=== PATIENT | female | born 1930 | race African-American/Black ===

== ENCOUNTER 2017-05-21 10:00 | Inpatient (IN) | payer MEDICARE ==
[~2017-05-21] VITALS: Ht 165.1 cm; Wt 58.1 kg
[~2017-05-21 10:00] MED LIST: ATEN100T PO; ESOM40CA PO; HYDR25TA PO; LISI-604 PO
[2017-05-21 11:43] LABS: BASOPHILS % 0.5 % (0.0-2.0); EOSINOPHILS % 1.2 % (0.0-5.0); HEMATOCRIT. 35.5 % (36.0-48.0); HEMOGLOBIN. 12.1 g/dL (12.0-16.0); LYMPHOCYTES % 21.9 % (20.0-50.0); MEAN CORPUSCULAR HEMOGLOBIN 30.4 pg (28.0-32.0); MEAN CORPUSCULAR VOLUME 89.4 fL (81.0-99.0); MEAN PLATELET VOLUME 8.3 fl (7.4-10.4); MONOCYTES % 6.6 % (2.0-8.0); NEUTROPHILS % 69.8 % (40.0-76.0); PLATELET 196 x1000/uL (130-400); RED BLOOD CELL COUNT 3.98 mill/uL (4.2-5.4); RED CELL DISTRIBUTION WIDTH 13.8 % (11.6-14.6)
[2017-05-21 12:04] LABS: CARBON DIOXIDE 28 mEq/L (21-32); CHLORIDE 107 mEq/L (98-107); ETHANOL BLOOD < 10 mg/dL; TROPONIN I < 0.02 ng/mL (0.00-0.04)
[2017-05-21 12:28] LABS: CLARITY URINE CLOUDY (CLEAR); COLOR URINE YELLOW (YELLOW); GLUCOSE URINE NEGATIVE (NEGATIVE); KETONES URINE NEGATIVE (NEGATIVE); LEUKOCYTE ESTERASE URINE 3+ (NEGATIVE); NITRITE URINE NEGATIVE (NEGATIVE); OCCULT BLOOD URINE TRACE (NEGATIVE); PROTEIN URINE NEGATIVE (NEGATIVE); SPECIFIC GRAVITY URINE 1.019 (1.005-1.030)
[2017-05-21] MEDS ORDERED: CEFTRIAXONE SODIUM 1 G/VIAL IM ONE (12:45)
[2017-05-21] MEDS ORDERED: LIDOCAINE HCL 1% 20ML VIAL (Pyxis) INJ INFIL ONE (12:45)
[2017-05-21 12:56] LABS: *AMPHETAMINES SCREEN URINE NEGATIVE (NEGATIVE); *BARBITURATES SCREEN URINE NEGATIVE (NEGATIVE); *BENZODIAZEPINES SCREEN URINE NEGATIVE (NEGATIVE); *COCAINE SCREEN URINE NEGATIVE (NEGATIVE); CANNABINOID URINE SCREEN NEGATIVE (NEGATIVE); METHADONE URINE SCREEN NEGATIVE (NEGATIVE); OPIATES URINE SCREEN NEGATIVE (NEGATIVE); PHENCYCLIDINE URINE SCREEN NEGATIVE (NEGATIVE)
[2017-05-21] MEDS ORDERED: GUAIFENESIN 200MG/10ML SUGAR FREE UDC PO PRN (19:00)
[2017-05-21] MEDS ORDERED: LORAZEPAM 0.5MG TABLET PO PRN (19:00)
[2017-05-21] MEDS ORDERED: IPRATROPIUM/ALBUTEROL 0.5-3(2.5)MG/3ML NEB INH PRN (19:00)
[2017-05-21] MEDS ORDERED: DIPHENHYDRAMINE 25MG CAPSULE PO ONE (21:30)
[2017-05-21] MEDS: LISINOPRIL 20MG TABLET PO SCH (22:21)
[2017-05-21 23:48] VITALS: BP 190/73
[2017-05-22] VITALS: BP 190/73
[2017-05-22] MEDS: CLONIDINE 0.1MG TABLET PO PRN (00:26)
[2017-05-22] MEDS: DOCUSATE SODIUM 100MG CAPSULE PO PRN (00:26)
[2017-05-22] MEDS ORDERED: DEXTROSE 50% WATER 50ML SYRINGE IV PRN (01:15)
[2017-05-22 04:00] VITALS: BP 112/36
[2017-05-22] MEDS: BLOOD SUGAR DIAGNOSTIC STRIP TEST SCH ×4 (06:40→21:00)
[2017-05-22] MEDS: INSULIN LISPRO 100 UNITS/ML SUBCUT SCH ×4 (06:40→21:00)
[2017-05-22] MEDS: PANTOPRAZOLE 40MG DR TABLET PO SCH (06:41)
[2017-05-22 08:00] VITALS: BP 136/53
[2017-05-22] MEDS: ATENOLOL 100 MG TABLET PO SCH ×2 (08:56→22:24)
[2017-05-22] MEDS: HYDROCHLOROTHIAZIDE 25MG TABLET PO SCH (08:57)
[2017-05-22] MEDS: LISINOPRIL 20MG TABLET PO SCH ×2 (08:57→22:25)
[2017-05-22 12:04] VITALS: BP 135/61
[2017-05-22] MEDS: CEFTRIAXONE 1 G PREMIX 50 ML IV SCH (13:31)
[2017-05-22 16:00] VITALS: BP 135/60
[2017-05-22 21:10] LABS: AMMONIA 32 uMol/L (<32)
[2017-05-22 21:20] LABS: T4 FREE 1.03 ng/dL (0.76-1.46)
[2017-05-22 21:37] LABS: FOLIC ACID (FOLATE) SERUM 6.9 ng/mL (>5.38)
[2017-05-22] MEDS: QUETIAPINE FUMARATE 25MG TABLET PO SCH (22:24)
[2017-05-23] VITALS: BP 140/47
[2017-05-23 04:00] VITALS: BP 132/55
[2017-05-23] MEDS: INSULIN LISPRO 100 UNITS/ML SUBCUT SCH ×4 (06:44→21:00)
[2017-05-23] MEDS: PANTOPRAZOLE 40MG DR TABLET PO SCH (06:44)
[2017-05-23] MEDS: BLOOD SUGAR DIAGNOSTIC STRIP TEST SCH ×4 (06:44→21:40)
[2017-05-23 08:00] VITALS: BP 152/54
[2017-05-23] MEDS: QUETIAPINE FUMARATE 25MG TABLET PO SCH ×2 (08:34→21:37)
[2017-05-23] MEDS: HYDROCHLOROTHIAZIDE 25MG TABLET PO SCH (08:34)
[2017-05-23] MEDS: ATENOLOL 100 MG TABLET PO SCH ×2 (08:34→21:40)
[2017-05-23] MEDS: LISINOPRIL 20MG TABLET PO SCH ×2 (08:35→21:40)
[2017-05-23 10:16] LABS: BASOPHILS % 0.4 % (0.0-2.0); EOSINOPHILS % 2.6 % (0.0-5.0); HEMATOCRIT. 34.2 % (36.0-48.0); HEMOGLOBIN. 11.5 g/dL (12.0-16.0); LYMPHOCYTES % 27.2 % (20.0-50.0); MEAN CORPUSCULAR VOLUME 88.8 fL (81.0-99.0); MEAN PLATELET VOLUME 8.4 fl (7.4-10.4); MONOCYTES % 7.4 % (2.0-8.0); NEUTROPHILS % 62.4 % (40.0-76.0); PLATELET 177 x1000/uL (130-400); RED BLOOD CELL COUNT 3.85 mill/uL (4.2-5.4); RED CELL DISTRIBUTION WIDTH 13.5 % (11.6-14.6)
[2017-05-23] MEDS: ENOXAPARIN 30MG/0.3ML SYR SUBCUT SCH (10:25)
[2017-05-23 10:41] LABS: CARBON DIOXIDE 29 mEq/L (21-32); CHLORIDE 108 mEq/L (98-107)
[2017-05-23 12:18] VITALS: BP 144/57
[2017-05-23] MEDS: CEFTRIAXONE 1 G PREMIX 50 ML IV SCH (15:28)
[2017-05-23 16:22] VITALS: BP 151/47
[2017-05-23] MEDS ORDERED: POTASSIUM CHLORIDE 20MEQ TABLET SR PO NR (18:00)
[2017-05-23 20:00] VITALS: BP 144/45
[2017-05-24] VITALS: BP 157/58
[2017-05-24 04:00] VITALS: BP 156/62
[2017-05-24] MEDS: INSULIN LISPRO 100 UNITS/ML SUBCUT SCH ×4 (07:15→21:00)
[2017-05-24 07:55] LABS: CARBON DIOXIDE 30 mEq/L (21-32); CHLORIDE 106 mEq/L (98-107)
[2017-05-24 08:00] VITALS: BP 174/72
[2017-05-24] MEDS: BLOOD SUGAR DIAGNOSTIC STRIP TEST SCH ×4 (08:15→21:00)
[2017-05-24] MEDS: CYANOCOBALAMIN 1000MCG TABLET PO SCH (08:16)
[2017-05-24] MEDS: HYDROCHLOROTHIAZIDE 25MG TABLET PO SCH (08:16)
[2017-05-24] MEDS: LISINOPRIL 20MG TABLET PO SCH ×2 (08:17→21:00)
[2017-05-24] MEDS: ATENOLOL 100 MG TABLET PO SCH ×2 (08:17→21:00)
[2017-05-24] MEDS: FAMOTIDINE 20MG TABLET PO SCH ×2 (08:17→21:00)
[2017-05-24] MEDS: ENOXAPARIN 30MG/0.3ML SYR SUBCUT SCH (08:22)
[2017-05-24] MEDS: QUETIAPINE FUMARATE 25MG TABLET PO SCH ×2 (08:38→21:00)
[2017-05-24] MEDS: CEFTRIAXONE 1 G PREMIX 50 ML IV SCH (10:43)
[2017-05-24] MEDS ORDERED: POTASSIUM CHLORIDE 20MEQ TABLET SR PO SCH (11:15)
[2017-05-24 12:00] VITALS: BP 112/43
[2017-05-24 16:00] VITALS: BP 145/59
[2017-05-24] MEDS: LORAZEPAM 2MG/ML CPJ IV PRN (21:30)
[2017-05-25] VITALS (8 sets, daily range): BP systolic 95–194; BP diastolic 35–83
[2017-05-25] MEDS: CLONIDINE 0.1MG TABLET PO PRN (00:33)
[2017-05-25] MEDS: INSULIN LISPRO 100 UNITS/ML SUBCUT SCH ×4 (06:27→21:00)
[2017-05-25] MEDS: BLOOD SUGAR DIAGNOSTIC STRIP TEST SCH ×4 (06:27→21:41)
[2017-05-25] MEDS: CYANOCOBALAMIN 1000MCG TABLET PO SCH (06:31)
[2017-05-25] MEDS: DOCUSATE SODIUM 100MG CAPSULE PO PRN (10:07)
[2017-05-25] MEDS: ATENOLOL 100 MG TABLET PO SCH ×2 (10:07→21:00)
[2017-05-25] MEDS: FAMOTIDINE 20MG TABLET PO SCH ×2 (10:07→21:58)
[2017-05-25] MEDS: HYDROCHLOROTHIAZIDE 25MG TABLET PO SCH (10:07)
[2017-05-25] MEDS: QUETIAPINE FUMARATE 25MG TABLET PO SCH ×2 (10:08→21:59)
[2017-05-25] MEDS: LISINOPRIL 20MG TABLET PO SCH ×2 (10:08→21:00)
[2017-05-25] MEDS: ENOXAPARIN 30MG/0.3ML SYR SUBCUT SCH (10:12)
[2017-05-25] MEDS: CEFTRIAXONE 1 G PREMIX 50 ML IV SCH (10:14)
[2017-05-25] MEDS: MEMANTINE HCL 5MG TABLET PO SCH (16:31)
[2017-05-25] MEDS: LORAZEPAM 2MG/ML CPJ IV PRN (19:15)
[2017-05-26] VITALS: BP 117/72
[2017-05-26 04:00] VITALS: BP 98/54
[2017-05-26 05:37] LABS: BASOPHILS % 0.5 % (0.0-2.0); EOSINOPHILS % 2.8 % (0.0-5.0); HEMATOCRIT. 38.7 % (36.0-48.0); HEMOGLOBIN. 13.2 g/dL (12.0-16.0); MEAN CORPUSCULAR HEMOGLOBIN 30.2 pg (28.0-32.0); MEAN CORPUSCULAR VOLUME 88.5 fL (81.0-99.0); MEAN PLATELET VOLUME 8.9 fl (7.4-10.4); NEUTROPHILS % 55.7 % (40.0-76.0); PLATELET 178 x1000/uL (130-400); RED BLOOD CELL COUNT 4.37 mill/uL (4.2-5.4); RED CELL DISTRIBUTION WIDTH 13.7 % (11.6-14.6)
[2017-05-26] MEDS: BLOOD SUGAR DIAGNOSTIC STRIP TEST SCH ×4 (06:01→20:28)
[2017-05-26] MEDS: INSULIN LISPRO 100 UNITS/ML SUBCUT SCH ×4 (06:01→20:27)
[2017-05-26 06:54] LABS: CARBON DIOXIDE 29 mEq/L (21-32); CHLORIDE 105 mEq/L (98-107)
[2017-05-26 08:00] VITALS: BP 143/58
[2017-05-26] MEDS: ATENOLOL 100 MG TABLET PO SCH ×2 (09:01→20:21)
[2017-05-26] MEDS: MEMANTINE HCL 5MG TABLET PO SCH (09:01)
[2017-05-26] MEDS: FAMOTIDINE 20MG TABLET PO SCH (09:01)
[2017-05-26] MEDS: LISINOPRIL 20MG TABLET PO SCH ×2 (09:02→20:20)
[2017-05-26] MEDS: CEFTRIAXONE 1 G PREMIX 50 ML IV SCH (09:02)
[2017-05-26] MEDS: ENOXAPARIN 30MG/0.3ML SYR SUBCUT SCH (09:02)
[2017-05-26] MEDS: QUETIAPINE FUMARATE 25MG TABLET PO SCH ×2 (09:02→20:20)
[2017-05-26] MEDS: CYANOCOBALAMIN 1000MCG TABLET PO SCH (09:02)
[2017-05-26] MEDS: HYDROCHLOROTHIAZIDE 25MG TABLET PO SCH (09:02)
[2017-05-26 12:00] VITALS: BP 114/45
[2017-05-26] MEDS: POTASSIUM CHLORIDE 20MEQ TABLET SR PO SCH (15:30)
[2017-05-26 16:00] VITALS: BP 127/56
[2017-05-26] MEDS: LORAZEPAM 2MG/ML CPJ IV PRN (17:10)
[2017-05-26 20:00] VITALS: BP 116/74
[2017-05-27] VITALS: BP 138/53
[2017-05-27 04:15] VITALS: BP 170/59
[2017-05-27] MEDS: CLONIDINE 0.1MG TABLET PO PRN (04:34)
[2017-05-27] MEDS: DOCUSATE SODIUM 100MG CAPSULE PO PRN (05:50)
[2017-05-27] MEDS: INSULIN LISPRO 100 UNITS/ML SUBCUT SCH ×4 (05:54→21:00)
[2017-05-27] MEDS: BLOOD SUGAR DIAGNOSTIC STRIP TEST SCH ×4 (05:54→21:00)
[2017-05-27 08:00] VITALS: BP 134/87
[2017-05-27] MEDS: CYANOCOBALAMIN 1000MCG TABLET PO SCH (08:49)
[2017-05-27] MEDS: POTASSIUM CHLORIDE 20MEQ TABLET SR PO SCH (08:49)
[2017-05-27] MEDS: QUETIAPINE FUMARATE 25MG TABLET PO SCH ×2 (08:49→20:49)
[2017-05-27] MEDS: FAMOTIDINE 20MG TABLET PO SCH (08:49)
[2017-05-27] MEDS: MEMANTINE HCL 5MG TABLET PO SCH (08:49)
[2017-05-27] MEDS: LISINOPRIL 20MG TABLET PO SCH ×2 (08:49→20:49)
[2017-05-27] MEDS: ATENOLOL 100 MG TABLET PO SCH ×2 (08:50→20:49)
[2017-05-27] MEDS: HYDROCHLOROTHIAZIDE 25MG TABLET PO SCH (08:50)
[2017-05-27] MEDS: ENOXAPARIN 30MG/0.3ML SYR SUBCUT SCH (08:51)
[2017-05-27] MEDS: CEFTRIAXONE 1 G PREMIX 50 ML IV SCH (08:52)
[2017-05-27 10:07] LABS: 25-HYDROXY VITAMIN D3 19 ng/mL (.)
[2017-05-27 12:00] VITALS: BP 124/58
[2017-05-27 16:00] VITALS: BP 133/40
[2017-05-27 18:30] LABS: CARBON DIOXIDE 31 mEq/L (21-32); CHLORIDE 103 mEq/L (98-107)
[2017-05-27 18:44] LABS: AMMONIA 21 uMol/L (<32)
[2017-05-27 20:00] VITALS: BP 158/51
[2017-05-27] MEDS: LORAZEPAM 2MG/ML CPJ IV PRN (23:26)
[2017-05-28] VITALS (8 sets, daily range): BP systolic 113–170; BP diastolic 44–77
[2017-05-28] MEDS: DOCUSATE SODIUM 100MG CAPSULE PO PRN (05:53)
[2017-05-28] MEDS: INSULIN LISPRO 100 UNITS/ML SUBCUT SCH ×4 (06:01→20:41)
[2017-05-28] MEDS: BLOOD SUGAR DIAGNOSTIC STRIP TEST SCH ×4 (06:01→20:30)
[2017-05-28] MEDS: CEFTRIAXONE 1 G PREMIX 50 ML IV SCH (09:44)
[2017-05-28] MEDS: POTASSIUM CHLORIDE 20MEQ TABLET SR PO SCH (09:44)
[2017-05-28] MEDS: HYDROCHLOROTHIAZIDE 25MG TABLET PO SCH (09:44)
[2017-05-28] MEDS: QUETIAPINE FUMARATE 25MG TABLET PO SCH ×2 (09:45→20:40)
[2017-05-28] MEDS: ATENOLOL 100 MG TABLET PO SCH ×2 (09:45→20:40)
[2017-05-28] MEDS: MEMANTINE HCL 5MG TABLET PO SCH (09:45)
[2017-05-28] MEDS: CYANOCOBALAMIN 1000MCG TABLET PO SCH (09:45)
[2017-05-28] MEDS: FAMOTIDINE 20MG TABLET PO SCH (09:45)
[2017-05-28] MEDS: LISINOPRIL 20MG TABLET PO SCH ×2 (09:45→20:40)
[2017-05-28] MEDS: ENOXAPARIN 30MG/0.3ML SYR SUBCUT SCH (09:45)
[2017-05-28] MEDS ORDERED: MAGNESIUM HYDROXIDE 400MG/5ML 30ML UDC PO PRN (12:15)
[2017-05-28] MEDS: LORAZEPAM 2MG/ML CPJ IV PRN (22:57)
[2017-05-29] VITALS (7 sets, daily range): BP systolic 126–160; BP diastolic 53–95
[2017-05-29] MEDS: BLOOD SUGAR DIAGNOSTIC STRIP TEST SCH ×4 (05:45→21:00)
[2017-05-29] MEDS: INSULIN LISPRO 100 UNITS/ML SUBCUT SCH ×4 (06:00→21:00)
[2017-05-29] MEDS: LORAZEPAM 2MG/ML CPJ IV PRN ×2 (06:50→20:14)
[2017-05-29] MEDS: CYANOCOBALAMIN 1000MCG TABLET PO SCH ×2 (07:15→14:44)
[2017-05-29] MEDS: MEMANTINE HCL 5MG TABLET PO SCH ×2 (09:00→14:44)
[2017-05-29] MEDS: ENOXAPARIN 30MG/0.3ML SYR SUBCUT SCH (09:00)
[2017-05-29] MEDS: LISINOPRIL 20MG TABLET PO SCH ×2 (09:00→21:34)
[2017-05-29] MEDS: ATENOLOL 100 MG TABLET PO SCH ×2 (09:00→21:34)
[2017-05-29] MEDS: QUETIAPINE FUMARATE 25MG TABLET PO SCH ×2 (09:00→21:34)
[2017-05-29] MEDS: HYDROCHLOROTHIAZIDE 25MG TABLET PO SCH ×2 (09:00→14:44)
[2017-05-29] MEDS: FAMOTIDINE 20MG TABLET PO SCH ×2 (09:00→14:44)
[2017-05-29] MEDS: POTASSIUM CHLORIDE 20MEQ TABLET SR PO SCH (09:00)
[2017-05-29] MEDS: CEFTRIAXONE 1 G PREMIX 50 ML IV SCH (11:51)
[2017-05-29] MEDS: DIPHENHYDRAMINE 50MG/ML VIAL IM PRN (23:51)
[2017-05-29] MEDS: HALOPERIDOL LACTATE 5MG/ML VIAL IM PRN (23:52)
[2017-05-30] VITALS: BP 168/86
[2017-05-30] MEDS: BLOOD SUGAR DIAGNOSTIC STRIP TEST SCH ×4 (07:12→21:00)
[2017-05-30] MEDS: INSULIN LISPRO 100 UNITS/ML SUBCUT SCH ×4 (07:13→21:00)
[2017-05-30 07:29] LABS: BASOPHILS % 0.5 % (0.0-2.0); EOSINOPHILS % 2.8 % (0.0-5.0); HEMATOCRIT. 38.9 % (36.0-48.0); HEMOGLOBIN. 13.2 g/dL (12.0-16.0); LYMPHOCYTES % 35.7 % (20.0-50.0); MEAN CORPUSCULAR HEMOGLOBIN 30.6 pg (28.0-32.0); MEAN CORPUSCULAR VOLUME 89.9 fL (81.0-99.0); MEAN PLATELET VOLUME 8.8 fl (7.4-10.4); MONOCYTES % 12.8 % (2.0-8.0); NEUTROPHILS % 48.2 % (40.0-76.0); PLATELET 177 x1000/uL (130-400); RED BLOOD CELL COUNT 4.32 mill/uL (4.2-5.4); RED CELL DISTRIBUTION WIDTH 13.6 % (11.6-14.6)
[2017-05-30 07:33] LABS: CARBON DIOXIDE 30 mEq/L (21-32); CHLORIDE 104 mEq/L (98-107)
[2017-05-30 08:00] VITALS: BP 149/54
[2017-05-30] MEDS: FAMOTIDINE 20MG TABLET PO SCH (08:58)
[2017-05-30] MEDS: ATENOLOL 100 MG TABLET PO SCH ×2 (08:59→21:00)
[2017-05-30] MEDS: MEMANTINE HCL 5MG TABLET PO SCH (09:00)
[2017-05-30] MEDS: QUETIAPINE FUMARATE 25MG TABLET PO SCH ×3 (09:00→22:00)
[2017-05-30] MEDS: HYDROCHLOROTHIAZIDE 25MG TABLET PO SCH (09:00)
[2017-05-30] MEDS: ENOXAPARIN 30MG/0.3ML SYR SUBCUT SCH ×2 (09:00→09:09)
[2017-05-30] MEDS: CYANOCOBALAMIN 1000MCG TABLET PO SCH (09:00)
[2017-05-30] MEDS: LISINOPRIL 20MG TABLET PO SCH ×2 (09:00→21:00)
[2017-05-30] MEDS ORDERED: POTASSIUM CHLORIDE 20MEQ TABLET SR PO SCH (11:30)
[2017-05-30 12:00] VITALS: BP 118/44
[2017-05-30 16:00] VITALS: BP 125/54
[2017-05-30] MEDS: POTASSIUM CHLORIDE 20MEQ TABLET SR PO SCH (16:25)
[2017-05-30] MEDS: HALOPERIDOL LACTATE 5MG/ML VIAL IM PRN (18:29)
[2017-05-30 20:00] VITALS: BP 130/52
[2017-05-31] VITALS: BP_SYST 122; BP_SYST 165; BP_DIAS 49; BP_DIAS 62
[2017-05-31 04:00] VITALS: BP 149/52
[2017-05-31] MEDS: BLOOD SUGAR DIAGNOSTIC STRIP TEST SCH ×4 (06:47→20:28)
[2017-05-31] MEDS: QUETIAPINE FUMARATE 25MG TABLET PO SCH ×3 (06:58→21:41)
[2017-05-31] MEDS: INSULIN LISPRO 100 UNITS/ML SUBCUT SCH ×4 (06:58→20:27)
[2017-05-31 08:00] VITALS: BP 128/72
[2017-05-31] MEDS: POTASSIUM CHLORIDE 20MEQ TABLET SR PO SCH (08:47)
[2017-05-31] MEDS: CYANOCOBALAMIN 1000MCG TABLET PO SCH (08:47)
[2017-05-31] MEDS: ENOXAPARIN 30MG/0.3ML SYR SUBCUT SCH ×2 (08:47→08:59)
[2017-05-31] MEDS: HYDROCHLOROTHIAZIDE 25MG TABLET PO SCH (08:48)
[2017-05-31] MEDS: ATENOLOL 100 MG TABLET PO SCH ×2 (08:48→21:41)
[2017-05-31] MEDS: FAMOTIDINE 20MG TABLET PO SCH (08:48)
[2017-05-31] MEDS: MEMANTINE HCL 5MG TABLET PO SCH (08:48)
[2017-05-31] MEDS: LISINOPRIL 20MG TABLET PO SCH ×2 (08:48→21:41)
[2017-05-31] MEDS: HALOPERIDOL LACTATE 5MG/ML VIAL IM PRN ×2 (09:51→22:47)
[2017-05-31 12:00] VITALS: BP 124/70
[2017-05-31 16:00] VITALS: BP 141/59
[2017-05-31 20:00] VITALS: BP 138/51
[2017-05-31] MEDS: DIPHENHYDRAMINE 50MG/ML VIAL IM PRN (22:47)
[2017-06-01] VITALS (7 sets, daily range): BP systolic 109–167; BP diastolic 47–68
[2017-06-01] MEDS: HALOPERIDOL LACTATE 5MG/ML VIAL IM PRN ×2 (01:57→07:40)
[2017-06-01] MEDS: BLOOD SUGAR DIAGNOSTIC STRIP TEST SCH ×3 (06:45→16:48)
[2017-06-01] MEDS: INSULIN LISPRO 100 UNITS/ML SUBCUT SCH ×3 (06:50→16:48)
[2017-06-01] MEDS: CYANOCOBALAMIN 1000MCG TABLET PO SCH ×2 (06:54→08:37)
[2017-06-01] MEDS: QUETIAPINE FUMARATE 25MG TABLET PO SCH ×2 (06:54→14:00)
[2017-06-01] MEDS: DIPHENHYDRAMINE 50MG/ML VIAL IM PRN (07:39)
[2017-06-01] MEDS: FAMOTIDINE 20MG TABLET PO SCH (08:37)
[2017-06-01] MEDS: MEMANTINE HCL 5MG TABLET PO SCH (08:37)
[2017-06-01] MEDS: POTASSIUM CHLORIDE 20MEQ TABLET SR PO SCH (08:38)
[2017-06-01] MEDS: ENOXAPARIN 30MG/0.3ML SYR SUBCUT SCH (08:38)
[2017-06-01] MEDS: HYDROCHLOROTHIAZIDE 25MG TABLET PO SCH (08:50)
[2017-06-01] MEDS: ATENOLOL 100 MG TABLET PO SCH (08:51)
[2017-06-01] MEDS: LISINOPRIL 20MG TABLET PO SCH (08:51)
[2017-06-01] MEDS: CLONIDINE 0.1MG TABLET PO PRN (13:11)
== END 2017-06-01 17:15 | DRG 689 ==
LOC: ER 10:00 → 5WST 15:34 → ENRESERV 22:06 → CANRESERV 22:06 → ENRESERV 22:59 → UNDODISIN 06-01 13:00
PROVIDERS: ADMIT Internal Medicine; ATTEND Internal Medicine
DX: N39.0 Urinary tract infection, site not specified (principal); G92 Toxic encephalopathy; F03.91 Unspecified dementia, unspecified severity, with behavioral disturbance; I11.9 Hypertensive heart disease without heart failure; M43.00 Spondylolysis, site unspecified; R26.9 Unspecified abnormalities of gait and mobility; K21.9 Gastro-esophageal reflux disease without esophagitis; K29.50 Unspecified chronic gastritis without bleeding; E87.6 Hypokalemia; X58.XXXA Exposure to other specified factors, initial encounter; Z87.11 Personal history of peptic ulcer disease; Z87.891 Personal history of nicotine dependence; Z90.710 Acquired absence of both cervix and uterus; Z79.899 Other long term (current) drug therapy; Z72.89 Other problems related to lifestyle; Y93.89 Activity, other specified; Y92.89 Other specified places as the place of occurrence of the external cause; Y99.8 Other external cause status; S99.921A Unspecified injury of right foot, initial encounter
CPT/HCPCS: 36415; 70450; 70551; 71010; 73130; 80048; 80053; 80305; 80307; 80329; 81001; 82140; 82306; 82607; 82746; 82962; 83036; 83690; 84439; 84443; 84481; 84484; 85025; 87040; 87086; 93005; 96372; 97112; 97116; 97162; 97530; 99285; C1893; G0482; J0696; J1200; J1630; J1650; J1815; J2060; J3490; J7040; J7620